=== PATIENT | male | born 1985 | race Caucasian/White ===

== ENCOUNTER 2022-09-16 09:15 | Outpatient (RCR) | payer OTHER, SELFPAY | END 2023-06-12 23:59 | disposition home or self-care (01) | PROVIDERS: Visit Provider Emergency Medicine | DX: M25.562 Pain in left knee (principal); Z51.89 Encounter for other specified aftercare | CPT/HCPCS: 97035; 97110; 97140; 97161 ==

== ENCOUNTER 2024-02-13 09:29 | Outpatient (CLI) | payer BC, SELFPAY | END 2024-02-13 09:30 | disposition home or self-care (01) | LOC: NFLDREF 02-16 06:45 | PROVIDERS: PCP Emergency Medicine; Referring Provider Emergency Medicine; Visit Provider Emergency Medicine | DX: N52.9 Male erectile dysfunction, unspecified (principal); E78.1 Pure hyperglyceridemia; Z13.228 Encounter for screening for other metabolic disorders | CPT/HCPCS: 80048; 80061; 84403 ==

== ENCOUNTER 2024-03-08 18:43 | Outpatient (CLI) | payer BC, SELFPAY ==
--- NOTE | 2024-03-17 13:08 | W.PM.SLEEP ---
Sleep Study Details Details Interpreting Provider: Alton Dukes Date of Sleep Study: 03/08/24 Sleep Study Details: STUDY TYPE:? Home unattended ? BMI:? 29.3 ORDERING PROVIDER:? Bri INDICATION:? Concerns about sleep apnea ? SLEEP SUMMARY:? 550.6 minutes monitored RESPIRATORY SUMMARY:? AHI 25.1 Low oxygen 86 1.3% of study oxygen less than 90% Snoring 84.3% PERIODIC LIMB MOVEMENTS OF SLEEP:? Not recorded CARDIAC:? Range 56-117, mean 77.7 IMPRESSION:? Moderate obstructive sleep apnea RECOMMENDATION: Treatment options include CPAP, dental appliance and/or airway expansion surgery.
== END 2024-03-08 18:44 | disposition home or self-care (01) ==
PROVIDERS: PCP Emergency Medicine; Visit Provider Otolaryngology
DX: G47.33 Obstructive sleep apnea (adult) (pediatric) (principal)
CPT/HCPCS: 95806

== ENCOUNTER 2024-03-10 08:21 | Outpatient (CLI) | payer BC, SELFPAY | END 2024-03-10 08:22 | disposition home or self-care (01) | LOC: NFLDREF 03-12 06:54 | PROVIDERS: PCP Emergency Medicine; Referring Provider Emergency Medicine; Visit Provider Emergency Medicine | DX: R79.89 Other specified abnormal findings of blood chemistry (principal) | CPT/HCPCS: 83001; 83002; 84403 ==

== ENCOUNTER 2024-06-28 08:10 | Outpatient (CLI) | payer BC, SELFPAY ==
--- OUTSIDE RECORDS SUMMARY | 2024-06-29 04:46 | XMS_ITS | Clinical Summary ---
Author Organization [facility] Address [address] [place] [address] Care Team Providers Care Adjunct Sociology Professor Name Role Phone Jefferson Alexander APRN, CNP Primary Care Provid er Source Comments You are receiving this document as you are listed as the primary care provider,follow-up provider, or the patient has been referred to you for consultation.This is in compliance with the Medicare and[facility],which states Providers who transition their patient to another setting of careor provider of care or refers their patient to another provider of care shouldprovide summary care record for each transition of care or referral. [facility] Allergies No known active allergies Medications Medication Sig Dispensed Refills Start Date End Date Status unknown medication Indications: PN: 11/01/2004 Active unknown medication Indications: PN: 05/05/2011 Active sildenafil (AKA VIAGRA) 100 MG tabletIndications:Ere ctile dysfunction of organic origin Take 1 tablet by mouth as needed for Erectile Dysfunction. 6 tablet 11 08/25/2014 Active Social History Tobacco Use Types Packs/Day Years Used Date Smoking Tobacco: Never Smokeless Tobacco: Never Comments:Quit smoking: Sex and Gender Information Value Date Recorded Sex Assigned at Not on file Gender Identity Not on file Sexual Orientation Not on file Last Filed Vital Signs Vital Sign Reading Time Taken Comments Blood Pressure 113/75 03/19/2017 7:00 PM CDT Pulse 89 03/19/2017 7:00 PM CDT Temperature 36.7 ??C (98 ??F) 03/19/2017 7:00 PM CDT Respiratory Rate 14 03/19/2017 7:00 PM CDT Oxygen Saturation - - Inhaled Oxygen Concentration - - Weight 67.6 kg (149 lb) 08/25/2014 9:47 AM CDT Height 167 cm (5' 5.75) 08/25/2014 9:47 AM CDT Body Mass Index 24.23 08/25/2014 9:47 AM CDT Plan of Treatment Health Maintenance Due Date Last Done Comments Hep C Screening (Preventive Services) 1984 HIV Screening (Preventive Services) 2000 Adult Preventive Visit 2002 DTaP/Tdap/Td (1 - Tdap) 2003 HepB (1) 2003 Cholesterol 2019 COVID-19 Vaccine (1 - 2022-2 4 season) 2023 Influenza (#1) 2024 Zoster/Shingles (1 of 2) 2034 HPV Vaccine Aged Out No longer eligi ble based on patient's age to complete this topic HepA Aged Out No longer eligi ble based on patient's age to complete this topic Hib Aged Out No longer eligi ble based on patient's age to complete this topic IPV (Polio) Aged Out No longer eligi ble based on patient's age to complete this topic MCV4 Aged Out No longer eligi ble based on patient's age to complete this topic Pneumococcal Aged Out No longer eligi ble based on patient's age to complete this topic Care Teams Adjunct Sociology Professor Relationship Specialty Start Date End Date Jefferson Alexander, BIOINFORMATICS ENGINEER, SHORT STORY WRITER [id number] [place] [address] [facility] - General 08/23/14
== END 2024-06-28 08:11 | disposition home or self-care (01) ==
LOC: NFLDREF 06-29 04:45
PROVIDERS: PCP Emergency Medicine; Referring Provider Emergency Medicine; Visit Provider Emergency Medicine
DX: E78.1 Pure hyperglyceridemia (principal)
CPT/HCPCS: 80061

== ENCOUNTER 2024-10-05 09:29 | Outpatient (CLI) | payer BC, SELFPAY ==
--- OUTSIDE RECORDS SUMMARY | 2024-10-05 09:34 | XMS_ITS | Clinical Summary ---
Author Organization [facility] Address [address] [place] [address] Care Team Providers Care Cruller Maker Name Role Phone Jefferson Alexander APRN, CNP Primary Care Provid er Source Comments You are receiving this document as you are listed as the primary care provider,follow-up provider, or the patient has been referred to you for consultation.This is in compliance with the Medicare and[facility] Incentive [facility],which states Providers who transition their patient to another setting of careor provider of care or refers their patient to another provider of care shouldprovide summary care record for each transition of care or referral. [facility] [employer] Allergies No known active allergies Medications Medication [...] HepB (1) 2003 Cholesterol 2019 COVID-19 Vaccine ( - 2023-2 5 season) 2024 Influenza (#1) 2024 Zoster/Shingles (1 of 2) [...] on patient's age to complete this topic Infant RSV Aged Out No longer eligi ble based on patient's age to complete this topic MCV4 Aged Out No longer eligi ble based on patient's age to complete this topic Pneumococcal Aged Out No longer eligi ble based on patient's age to complete this topic Care Teams Cruller Maker Relationship Specialty Start Date End Date Jefferson Alexander URBAN REDEVELOPMENT SPECIALIST, GLASS TOUGHENING OPERATOR [address] [place] [address] [facility] - General 08/23/14
[2024-10-05 15:18] LABS: Chlamydia DNA Amplified* NOT DETECTED (No Detected); GC DNA Amplified* NOT DETECTED (No Detected)
== END 2024-10-05 09:30 | disposition home or self-care (01) ==
PROVIDERS: PCP Emergency Medicine; Visit Provider Emergency Medicine
DX: A64 Unspecified sexually transmitted disease (principal); Z11.3 Encounter for screening for infections with a predominantly sexual mode of transmission
CPT/HCPCS: 86592; 86703; 86706; 86803; 87340; 87491; 87591

== ENCOUNTER 2025-03-10 10:23 | Outpatient (CLI) | payer BC, SELFPAY ==
[2025-03-10 23:57] LABS: Chlamydia DNA Amplified* NOT DETECTED (No Detected); GC DNA Amplified* NOT DETECTED (No Detected)
== END 2025-03-10 10:24 | disposition home or self-care (01) ==
PROVIDERS: PCP Emergency Medicine; Visit Provider Emergency Medicine
DX: R59.0 Localized enlarged lymph nodes (principal); L02.214 Cutaneous abscess of groin; Z11.3 Encounter for screening for infections with a predominantly sexual mode of transmission; Z11.4 Encounter for screening for human immunodeficiency virus [HIV]
CPT/HCPCS: 86140; 86592; 86703; 87070; 87491; 87591

== ENCOUNTER 2025-04-06 09:15 | Outpatient (RCR) | payer BC, SELFPAY | END 2025-08-04 12:56 | disposition home or self-care (01) | PROVIDERS: PCP Emergency Medicine; Visit Provider Emergency Medicine | DX: M25.571 Pain in right ankle and joints of right foot (principal); M25.572 Pain in left ankle and joints of left foot; Z51.89 Encounter for other specified aftercare | CPT/HCPCS: 97110; 97140; 97161 ==

== ENCOUNTER 2025-07-19 07:27 | Outpatient (CLI) | payer BC, SELFPAY | END 2025-07-19 07:28 | disposition home or self-care (01) | LOC: NFLDREF 07-21 14:12 | PROVIDERS: PCP Family Medicine; Referring Provider Family Medicine; Visit Provider Family Medicine | DX: Z01.818 Encounter for other preprocedural examination (principal); E78.1 Pure hyperglyceridemia | CPT/HCPCS: 80053; 80061 ==

== ENCOUNTER 2025-07-27 06:38 | Day surgery (SDC) | payer BC, SELFPAY ==
[2025-07-27] VITALS (13 sets, daily range): BP systolic 106–133; BP diastolic 52–86; PULSE 80–100; RESP 14–16; TEMP 36.3–36.6; O2SAT 91–98; BMI 31.2
[2025-07-27] MEDS: LACTATED RINGERS 1000 ML 1,000 ML 100 ML IV (06:55)
--- NOTE | 2025-07-27 07:13 | W.PM.H&PU ---
History & Physical Update History & Physical Update H&P Reviewed and patient assessed: No changes noted
[2025-07-27] MEDS: SODIUM CHLORIDE 0.9 % (FLUSH) 10 ML SYRINGE IVF (07:47)
--- NOTE | 2025-07-27 07:58 | P.ANES_ITS ---
Anesthesia Charges Start Date/Time Anesthesia Start Date: 07/27/25 Anesthesia Start Time: 08:36 Stop Date/Time Anesthesia Stop Date: 07/27/25 Anesthesia Stop Time: 11:02 Coding CPT Codes CPT Codes: ANESTH LOWER LEG SURGERY - 61600 ([id number]) P2 - PATIENT W/MILD SYST DISEASE, QK - ETHERNET NETWORK ARCHITECT 2-4 CNCRNT ANES PROC, QX - SPORTS CLERK SVC W/ MD MED DIRECTION
--- NOTE | 2025-07-27 07:58 | W.ANESCHARGE ---
Anesthesia Charges Start Date/Time Anesthesia Start Date: 07/27/25 Anesthesia Start Time: 08:36 Stop Date/Time Anesthesia Stop Date: 07/27/25 Anesthesia Stop Time: 11:02 Coding CPT Codes CPT Codes: ANESTH LOWER LEG SURGERY - 13288 ([id number]) P2 - PATIENT W/MILD SYST DISEASE, QK - LOCK UP WORKER 2-4 CNCRNT ANES PROC, QX - DIRECTOR OF MEDICAL SERVICES SVC W/ MD MED DIRECTION
[2025-07-27] MEDS: LIDOCAINE 1%-EPI 1:100,000 20 ML INFILTRATI (10:10)
[2025-07-27] MEDS: BUPIVACAINE 0.25% 30 ML INJECTION (10:10)
--- NOTE | 2025-07-27 11:10 | P.ANES_ITS ---
Anesthesia Charges Start Date/Time Anesthesia Start Date: 07/27/25 Anesthesia Start Time: 08:36 Stop Date/Time Anesthesia Stop Date: 07/27/25 Anesthesia Stop Time: 11:02 Coding CPT Codes CPT Codes: ANESTH LOWER LEG SURGERY - 82385 ([id number]) P2 - PATIENT W/MILD SYST DISEASE, QK - LEATHER SCRUBBER 2-4 CNCRNT ANES PROC
--- NOTE | 2025-07-27 11:10 | W.ANESCHARGE ---
Anesthesia Charges Start Date/Time Anesthesia Start Date: 07/27/25 Anesthesia Start Time: 08:36 Stop Date/Time Anesthesia Stop Date: 07/27/25 Anesthesia Stop Time: 11:02 Coding CPT Codes CPT Codes: ANESTH LOWER LEG SURGERY - 35426 ([id number]) P2 - PATIENT W/MILD SYST DISEASE, QK - INTEGRATION SPECIALIST 2-4 CNCRNT ANES PROC
[2025-07-27] MEDS: IBUPROFEN 200 MG TABLET 600 MG PO (12:15)
[2025-07-27] MEDS: ACETAMINOPHEN 325 MG TABLET PO (12:19)
--- NOTE | 2025-07-27 12:32 | PM.ORPRC ---
Procedure Note Date of procedure: 07/27/25 Procedure: PREOPERATIVE DIAGNOSIS: 1. Bilateral leg chronic exertional compartment syndrome, multiple compartments POSTOPERATIVE DIAGNOSIS: 1. Bilateral leg chronic exertional compartment syndrome, multiple compartments PROCEDURE: 1. Bilateral leg open fasciotomy of to all 4 compartments (anterior, lateral, superficial posterior, and deep posterior) SURGEON: Mahin Scott M.D. OCCUPATIONAL THERAPY AIDE: Oseas Leyva PA-C. Of note, an sourcing assistant was critical for this case to aid in patient positioning, knee manipulation, retraction, and closure. ANESTHESIA: General endotracheal anesthetic EBL: 25 mL TOURNIQUET: 8 minutes at 250 torr on the right leg; 7 minutes at 250 torr the left leg. IMPLANTS: None COMPLICATIONS: None evident INDICATIONS: The patient is a pleasant 39-year-old male who has experienced increasing pain about bilateral legs with any type of exercise/activity. Initially this was after approximately 1 mi of running, but change to after just 1/2 mi of running. Now most recently just simply jogging after his son who was learning how to ride a bike for 2 houses the symptoms developed. He needs to rest to allow them to regress. Anterior and deep posterior compartment pressure measurement was performed on 06/09/2025. This had the following findings: Right anterior compartment 120 mm Hg Right deep posterior compartment 48 mmHg Left anterior compartment 137 mm Hg Left deep posterior compartment 30 mmHg FINDINGS: Anterior compartment showed some pressurization but healthy muscle. When releasing the lateral compartment, it also showed significant pressurized compartment with a muscle expanding out from the fasciotomy. However, there was also significant hematoma and a slight dusky or color to this lateral compartment muscle. Still had some beefy red color, but not as vibrant as the anterior compartment muscle. DESCRIPTION OF PROCEDURE: After a thorough discussion of risks, benefits, and alternatives, the patient was brought to the operating room and placed upon the operating table. Induction of anesthesia was undertaken as previously noted. 2g iv Ancef was administered within 1 hr of incision preoperatively. Appropriate time-out was performed identifying proper patient, site, and procedure. Bilateral lower extremities were prepped and draped in the appropriate sterile fashion using ChloraPrep. We began on the right leg for the anterior and lateral compartment release. The leg was exsanguinated and tourniquet inflated to 250 mmHg. After gauging approximately 3 finger breaths from the anterior tibial crest dorsal lateral aspect of the knee, a line was trauma on essentially from the fibular neck down to the distal fibular flare. A 5-6 cm length incision was made centered over the the suspected superficial peroneal nerve exit from the fascia. This was approximately 10-11 cm from the distal fibular tip. Sharp incision through skin and blunt dissect through the subcutaneous tissue allowed identification of this SPN. Initially, approximately 1-2 cm anterior to this SPN we identified the fascia and released it both superficial and deep with a closed Metzenbaum scissors to create a pathway, then the Gideon was utilized to split the fascia both distally toward the fibular flare and proximally toward the fibular neck. Excellent release was achieved and confirmed with both visualization and palpation. We progressed to the lateral compartment release which was now performed posterior to the SPN. The same process were the fascia was isolated with Metzenbaum scissors in a closed fashion both superficial and deep, it was then split with Metzenbaum scissors proximally and distally to the same length. This right lower extremity tourniquet was released. We then turned our attention to the contralateral left leg. The left tourniquet was inflated, same process undertaken with the same results-both direct visualization and palpation confirmed release of the fascia on both the anterior and lateral compartments. The tourniquet was released. Then turning towards the posterior compartments, we began on the right lower extremity. Approximately 1 cm off the medial tibial border again over approximately 5-6 cm in total length centered over the midportion of the leg a sharp incision was made with the scalpel. Blunt dissection was then performed. The saphenous vein was identified clearly. This superficial compartment was released in a similar fashion with Mets both superficial and deep to the fascia and then finally splitting the fascia both proximally and distally. We then dissected the superficial muscular tissue off from the deep compartment and released it in a similar fashion with Metzenbaum scissors again confirming both visually as well as with digital palpation that was released throughout the length from the proximal portion of the leg to the distal portion. Finally, this was similarly performed on the contralateral left leg. Thereafter, thorough irrigation normal saline was performed. Closure performed in layered fashion with 2-0 Vicryl to reapproximate the subcutaneous layer, 2-0 Stratafix and 4-0 Monocryl for subcutaneous and subcuticular closure, respectively. The patient was woken from anesthesia and transferred to the recovery room in stable condition. PLAN: 1. Weightbear as tolerated operative extremity. Crutch ambulation assistance PRN. Straight leg raise to be initiated starting tomorrow by the patient. 2. Ice, acetaminophen and/or oxycodone for pain as needed. 3. Knee and ankle range of motion and quad sets/straight leg raise regularly
== END 2025-07-27 13:07 | disposition home or self-care (01) ==
LOC: OR 06:38
PROVIDERS: PCP Family Medicine; Visit Provider Orthopaedic Surgery Sports Medicine
PROC: (CPT 27602; principal; 2025-07-27 09:15)
DX: M79.A21 Nontraumatic compartment syndrome of right lower extremity (principal); M79.A22 Nontraumatic compartment syndrome of left lower extremity
CPT/HCPCS: 27602; 01470; A9270; J0665; J0690; J1100; J2250; J2405; J2704; J3010; J3490; J7120

== ENCOUNTER 2025-09-14 09:54 | Outpatient (CLI) | payer BC, SELFPAY ==
[2025-09-14 10:44] LABS: PCR FLU A Negative PCR FLU A (Negative); PCR FLU B Negative PCR FLU B (Negative); SARS PCR* Negative SARS-CoV-2 (Negative)
== END 2025-09-14 09:55 | disposition home or self-care (01) ==
LOC: FRMREF 09:55
PROVIDERS: PCP Family Medicine; Visit Provider Physician Assistant Medical
DX: R51.9 Headache, unspecified (principal); R53.83 Other fatigue
CPT/HCPCS: 87636